=== PATIENT | female | born 1950 | race Caucasian/White ===

== ENCOUNTER 2016-10-12 17:21 | Emergency (ER) | payer MEDICARE, OTHER ==
[2016-10-12] MEDS ORDERED: HYDROCODONE/ACETAMINOPHEN 5/325MG TABLET ONE (18:29)
[2016-10-12] MEDS ORDERED: IBUPROFEN 800 MG TABLET ONE (18:29)
--- NOTE | 2016-10-12 19:02 | RAD ---
SHOULDER-LEFT 2 OR MORE VIEWS History: Fall today. Comparison: None. Findings: 3 views of the left shoulder demonstrate an intact appearance of the proximal humerus. There is a lucency suggested through the inferior aspect of the bony glenoid suggestive of a glenoid fracture. The glenohumeral alignment is appropriate. The acromiohumeral distance is well maintained. Included portions of the left lung field are within expected. Impression: 1. Evidence of a fracture of the inferior portion of the bony glenoid. The findings were discussed with Dr. Reid at 1858 hours.
== END 2016-10-12 19:26 | disposition home or self-care (01) ==
LOC: ED 17:21
DX: S42.145A Nondisplaced fracture of glenoid cavity of scapula, left shoulder, initial encounter for closed fracture (principal); W00.0XXA Fall on same level due to ice and snow, initial encounter; Y92.89 Other specified places as the place of occurrence of the external cause
CPT/HCPCS: 73030; 99283 ×2; A9270 ×2

== ENCOUNTER 2016-12-30 14:07 | Emergency (ER) | payer MEDICARE, OTHER ==
[2016-12-30] MEDS ORDERED: KETOROLAC TROMETHAMINE 60 MG/2 ML VIAL ONE (14:35)
--- NOTE | 2016-12-30 15:13 | CT ---
L-SPINE W/O CON HISTORY: Back and right leg pain. COMPARISONS: None TECHNIQUE: Contiguous axial 2 mm images of the lumbar spine are obtained without IV contrast. Sagittal and coronal reformations are also obtained this time. CTDI: 88.6 DLP: 2466.6 FINDINGS: No fracture or dislocation. Slight grade 1 anterolisthesis of L5 on S1. Otherwise sagittal alignment is intact. 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 Multilevel degenerative facet disease is also present. Moderate to severe foraminal narrowing is present at the lumbosacral junction bilaterally with moderate narrowing of the L4-5 foramina bilaterally. The remainder the foramina are widely patent. Evaluation of the thecal contents is limited given the inherent spatial and contrast resolution limitations of CT the no gross amount is present. Regional soft tissues are intact. IMPRESSION: Multilevel degenerative changes without fracture or dislocation. Report was uploaded to the electronic medical record at approximately 1509 hours on 12/30/2016.
== END 2016-12-30 15:38 | disposition home or self-care (01) ==
LOC: ED 14:07
DX: M48.06 Spinal stenosis, lumbar region (principal); M47.816 Spondylosis without myelopathy or radiculopathy, lumbar region; M54.31 Sciatica, right side; I10 Essential (primary) hypertension; J45.909 Unspecified asthma, uncomplicated
CPT/HCPCS: 72131; 99282; 96372; 99283; J1885